=== PATIENT | male | born 1985 | race Caucasian/White ===

== ENCOUNTER 2024-08-24 19:26 | Emergency (ER) | payer OTHER, SELFPAY ==
[2024-08-24] VITALS (16 sets, daily range): BP systolic 107–165; BP diastolic 60–98; PULSE 50–96; RESP 16–20; TEMP 36.3; O2SAT 93–100; BMI 34.7
[2024-08-24 19:51] LABS: Basophils # 0.1 10^3/uL (0.0-0.1); Basophils % 0.4 %; Eosinophils # 0.2 10^3/uL (0.0-0.8); Eosinophils % 1.4 %; Hematocrit 45.2 % (37-53); Lymphocytes # 2.6 10^3/uL (0.8-4.8); Lymphocytes % 23.4 %; Mean Corpuscular HGB Conc 34.1 g/dL (30-55); Mean Corpuscular Hemoglobin 29.2 pg (27-33); Mean Corpuscular Volume 85.8 fl (82-101); Mean Platelet Volume 9.4 fL (7.4-10.4); Monocytes # 0.7 10^3/uL (0.2-0.9); Monocytes % 6.4 %; Neutrophils # 7.61 10^3/uL (1.8-7.7); Nucleated Red Blood Cells % 0 %; Platelet Count 310 10^3/cmm (157-399); Red Blood Count 5.27 10^6/uL (3.85-5.65); Red Cell Distribution Width 12.5 % (12.1-15.1); White Blood Count 11.21 10^3/uL (3.29-11.43)
[2024-08-24 20:07] LABS: Alanine Aminotransferase 39 U/L (0-41); Albumin Level 4.5 g/dL (3.5-5.2); Alkaline Phosphatase 83 U/L (40-130); Anion Gap 19.9 (5-19); Aspartate Amino Transferase 28 U/L (0-40); Blood Urea Nitrogen 15 mg/dL (6-20); Calcium 9.4 mg/dL (8.5-10.5); Carbon Dioxide 22 mmol/L (22-29); Chloride 101 mmol/L (98-107); Creatinine Clr Calc Pharmacy 114.9202; Globulin 2.6 g/dL (1.3-4.6); Glomerular Filtration Rate 67.4 mL/min (90-130); Glucose 137 mg/dL (65-115); Lipase 17 U/L (13-60); Osmolality Calculated 291 mOsm/kg (285-295); Potassium 3.9 mmol/L (3.5-5.1); Sodium 139 mmol/L (136-145); Total Bilirubin 0.3 mg/dL (0.15-1.2); Total Protein 7.1 g/dL (6.6-8.7)
--- NOTE | 2024-08-24 20:09 | CTR_ITS ---
PROCEDURE INFORMATION: Exam: CT Abdomen And Pelvis Without Contrast Exam date and time: 08/24/2024 8:14 PM Age: 39 years old Clinical indication: Abdominal pain; Patient HX: C/O left flank pain; Additional info: L flank pain TECHNIQUE: Imaging protocol: Computed tomography of the abdomen and pelvis without contrast. Radiation optimization: All CT scans at this facility use at least one of these dose optimization techniques: automated exposure control; mA and/or kV adjustment per patient size (includes targeted exams where dose is matched to clinical indication); or iterative reconstruction. COMPARISON: No relevant prior studies available. RADIATION DOSE METRICS: Total DLP (mGy-cm): 1146.78 FINDINGS: Liver: Normal. No mass. Gallbladder and biliary ducts: Normal. No calcified stones. No ductal dilation. Pancreas: Normal. No ductal dilation. Spleen: Normal. No splenomegaly. Adrenal glands: Normal. No mass. Kidneys and ureters: There is left obstructive uropathy secondary to a 4 mm stone involving the left proximal ureter at the level of L3-L4. There is punctate nonobstructing right nephrolithiasis. Stomach and bowel: Scattered colon diverticula. No inflammatory change identified involving the GI tract. No signs of bowel obstruction. Appendix: No evidence of appendicitis. Intraperitoneal space: Unremarkable. No free air. No significant fluid collection. Vasculature: Unremarkable. No abdominal aortic aneurysm. Lymph nodes: Unremarkable. No enlarged lymph nodes. Urinary bladder: Unremarkable as visualized. Reproductive: Unremarkable as visualized. Bones/joints: Unremarkable. No acute fracture. Soft tissues: Unremarkable. CT/CT kidney stone [id number] IMPRESSION: 1. Left obstructive uropathy secondary to a 4 mm stone involving the left proximal ureter. 2. Punctate nonobstructing right nephrolithiasis.
--- NOTE | 2024-08-24 20:18 | ED_ITS ---
HPI - Abdominal Pain 2 General: Chief Complaint: Abdominal Pain Stated Complaint: low left abd pain n/v Time Seen by Provider: 08/24/24 19:48 Source: patient Mode of arrival: ambulatory Limitations: no limitations History of Present Illness: 39-year-old male who states 90 minutes a go he started having left-sided abdominal and flank pain he states his pain started suddenly it has been severe in nature he states pain is currently 9 out of 10 it is causing vomiting. He denies any fevers denies any radiation of the pain denies any history of kidney stones. Associated Symptoms: Reports nausea and vomiting; Denies chills, diarrhea, dysuria and fever(s) Related Data Previous Rx's Medication Instructions Recorded azithromycin 250 mg tablet See Rx Instructions PO .COMPLEX #6 06/07/24 (Zithromax Z-Demetrio) tabs hydrocodone 5 mg-acetaminophen 325 1 tab PO Q6H PRN pain #14 tabs 08/24/24 mg tablet ondansetron 4 mg disintegrating 4 mg PO Q6H PRN nausea and 08/24/24 tablet vomiting #14 tabs Allergies Allergy/AdvReac Type Severity Reaction Status Date / Time No Known Allergies Allergy Verified 06/07/24 17:20 Review of Systems 2 Const: Denies: fever(s), chills, body aches or change in appetite ENMT: Denies: throat pain or dental pain Card: Denies: chest pain Resp: Denies: dyspnea GI: Reports: abdominal pain, nausea and vomiting; Denies: diarrhea : Denies: dysuria Musc: Denies: neck pain or back pain Skin/Breast: Denies: rash Neuro: Denies: headache(s) Physical Exam 2 Const: COMMON NORMALS: no acute distress, patient oriented x3 and healthy appearing HENMT: COMMON NORMALS: normocephalic and atraumatic HEAD & SCALP: n ormocephalic and atraumatic Eye: COMMON NORMALS: conjunctivae normal CONJUNCTIVA: Yes conjunctivae normal Neck/C-Spine: COMMON NORMALS: full ROM and supple Chest: COMMONS NORMALS: normal inspection of the chest Resp: COMMON NORMALS: normal respiratory effort Cardio: COMMON NORMALS: regular rate RATE: regular rate GI: COMMON NORMALS: Normal to inspection, nondistended, normoactive bowel sounds present, Soft to palpation, non-tender and no masses PALPATION: Yes Soft to palpation Extremity: COMMON NORMALS: normal to inspection and full ROM Neuro: COMMON NORMALS: patient oriented x3, moves all extremities and no focal motor deficits Psych: COMMON NORMALS: mental status grossly normal, Normal thought process present and cooperative THOUGHT PROCESS: Normal thought process present Skin: COMMON NORMALS: no rashes or lesions noted and no wounds GENERAL SKIN EXAM: no rashes or lesions noted Course 2 Vital Signs: Vital signs: Vital Signs Temperature 97.4 F L 08/24/24 20:03 Pulse Rate 86 08/24/24 22:45 Respiratory Rate 16 08/24/24 22:35 Blood Pressure 112/60 08/24/24 22:35 Pulse Oximetry 96 08/24/24 22:35 Oxygen Delivery Me thod Room Air 08/24/24 20:03 MDM - Abdominal Pain Medical Decision Making Patient presents here with flank pain he is found to have a kidney stone no signs of infection his pains improved here we will prescribe him pain meds he is follow-up with urology he is return if worsening he understands agrees to plan. Medical Records I reviewed the patient's medical records. Lab Data I reviewed the patient's lab results. 08/24/24 19:45 08/24/24 19:45 Labs/Radiology: Radiology Impressions Abdomen/Pelvis CT 08/24/24 20:09 IMPRESSION: 1. Left obstructive uropathy secondary to a 4 mm stone involving the left proximal ureter. 2. Punctate nonobstructing right nephrolithiasis. Laboratory Results WBC 11.21 10^3/uL (3.29-11.43) 08/24/24 19:45 RBC 5.27 10^6/uL (3.85-5.65) 08/24/24 19:45 Hgb 15.40 g/dL (11.27-16.99) 08/24/24 19:45 Hct 45.2 % (37-53) 08/24/24 19:45 MCV 85.8 fl (82-101) 08/24/24 19:45 MCH 29.2 pg (27-33) 08/24/24 19:45 MCHC 34.1 g/dL (30-55) 08/24/24 19:45 RDW 12.5 % (12.1-15.1) 08/24/24 19:45 Plt Count 310 10^3/cmm (157-399) 08/24/24 19:45 MPV 9.4 fL (7.4-10.4) 08/24/24 19:45 Neut % (Auto) 68.0 % 08/24/24 19:45 Lymph % (Auto) 23.4 % 08/24/24 19:45 [place] % (Auto) 6.4 % 08/24/24 19:45 Eos % (Auto) 1.4 % 08/24/24 19:45 Baso % (Auto) 0.4 % 08/24/24 19:45 Neut # (Auto) 7.61 10^3/uL (1.8-7.7) 08/24/24 19:45 Lymph # (Auto) 2.6 10^3/uL (0.8-4.8) 08/24/24 19:45 [place] # (Auto) 0.7 10^3/uL (0.2-0.9) 08/24/24 19:45 Eos # (Auto) 0.2 10^3/uL (0.0-0.8) 08/24/24 19:45 Baso # (Auto) 0.1 10^3/uL (0.0-0.1) 08/24/24 19:45 Nucleated RBC % (auto) 0 % 08/24/24 19:45 Nucleated RBCs # 0.0 /100WBC 08/24/24 19:45 Sodium 139 mmol/L (136-145) 08/24/24 19:45 Potassium 3.9 mmol/L (3.5-5.1) 08/24/24 19:45 Chloride 101 mmol/L (98-107) 08/24/24 19:45 Carbon Dioxide 22 mmol/L (22-29) 08/24/24 19:45 Anion Gap 19.9 (5-19) H 08/24/24 19:45 BUN 15 mg/dL (6-20) 08/24/24 19:45 Creatinine 1.2 mg/dL (0.7-1.2) 08/24/24 19:45 GFR Calculation 67.4 mL/min (90-130) L 08/24/24 19:45 Glucose 137 mg/dL (65-115) H 08/24/24 19:45 Calculated Osmolality 291 mOsm/kg (285-295) 08/24/24 19:45 Calcium 9.4 mg/dL (8.5-10.5) 08/24/24 19:45 Total Bilirubin 0.3 mg/dL (0.15-1.2) 08/24/24 19:45 AST 28 U/L (0-40) 08/24/24 19:45 ALT 39 U/L (0-41) 08/24/24 19:45 Alkaline Phosphatase 83 U/L (40-130) 08/24/24 19:45 Total Protein 7.1 g/dL (6.6-8.7) 08/24/24 19:45 Albumin 4.5 g/dL (3.5-5.2) 08/24/24 19:45 Globulin 2.6 g/dL (1.3-4.6) 08/24/24 19:45 Lipase 17 U/L (13-60) 08/24/24 19:45 Urine Color Yellow (Yellow) 08/24/24 21:47 Urine Appearance Cloudy (CLEAR) A 08/24/24 21:47 Urine pH 6.5 (5-7) 08/24/24 21:47 Ur Specific [place] 1.027 (1.005-1.030) 08/24/24 21:47 Urine Protein 1+ (Negative) A 08/24/24 21:47 Urine Glucose (UA) Negative (Normal) 08/24/24 21:47 Urine Ketones 1+ (Negative) H 08/24/24 21:47 Urine Blood 3+ (Negative) A 08/24/24 21:47 Urine Nitrate Negative (Negative) 08/24/24 21:47 Urine Bilirubin Negative (Negative) 08/24/24 21:47 Urine Urobilinogen 1.0 mg/dL (Negative) 08/24/24 21:47 Ur Leukocyte Esterase Negative (Negative) 08/24/24 21:47 Urine RBC Too numerous to cnt /hpf (0-2) H 08/24/24 21:47 Urine WBC 11-20 /hpf (0-5) H 08/24/24 21:47 Ur Squamous Epith Cells 0-5 /hpf (0-5) 08/24/24 21:47 Amorphous Sediment Not Reportable 08/24/24 21:47 Urine Bacteria None seen /hpf (NONE) 08/24/24 21:47 Hyaline Casts 5.36 /lpf 08/24/24 21:47 Urine Mucus Trace /hpf 08/24/24 21:47 All radiology interpretation(s) finalized by discharge Discharge Plan Discharge Patient Disposition: Home Clinical Impression: Kidney stone Condition: Stable Prescriptions: New hydrocodone-acetaminophen 5-325 mg tablet 1 tab PO Q6H PRN (Reason: pain) Qty: 14 0RF ondansetron 4 mg tablet,disintegrating 4 mg PO Q6H PRN (Reason: nausea and vomiting) Qty: 14 0RF No Action azithromycin [Zithromax Z-Demetrio] 250 mg tablet See Rx Instructions PO .COMPLEX Qty: 6 0RF Rx Instructions: take 500 mg today (day 1), then 250 mg for 4 days (days 2-5) PO Discharge Orders: Discharge ED (Routine); Ordered 08/24/24 Ordered By: Linwood Munoz Referrals: Glen Renteria MD [Primary Care Provider] - Discharge Diet: Advance as tolerated Discharge Activity: Resume usual activity Patient Instructions: Kidney Stones (ED), Opioid Safety Coding Level of Care Code ED Tear Down Man for Hema Reza
[2024-08-24] MEDS: ondansetron 2 mg/ML SDV 2 mL 4 MG IVP (20:43)
[2024-08-24] MEDS: HYDROmorphone 1 mg/mL INJ 1 mL IVP (20:44)
[2024-08-24] MEDS: ketorolac 30 mg/mL INJ IVP (20:46)
[2024-08-24 22:08] LABS: Bilirubin Urine Negative (Negative); Blood Urine 3+ (Negative); Glucose Urine UA Negative (Normal); Ketones Urine 1+ (Negative); Leukocyte Esterase Urine Negative (Negative); Nitrate Urine Negative (Negative); Protein Urine 1+ (Negative); Specific Gravity, Urine 1.027 (1.005-1.030); Urine Appearance Cloudy (CLEAR); Urine Color Yellow (Yellow); pH Urine 6.5 (5-7)
[2024-08-24 22:13] LABS: Add Urine Microscopic? YES; Bacteria Urine None Seen /hpf; Hyaline Casts Urine 5.36 /lpf; Squamous Epithelial Cell Urine 0-5 /hpf (0-5); Universal Test for UA Present (0)
[2024-08-24 22:29] LABS: Add Urine Culture? Yes; Mucus Urine TRACE /hpf; RBC Urine TOO NUMEROUS TO CNT /hpf (0-2)
[2024-08-24] MEDS: HYDROcodone-acetaminophen 5-325 mg Tablet 2 TAB PO (22:47)
--- NOTE | 2024-08-26 15:15 | PC.SOCIAL ---
Urology Referral Patient's referral faxed to Dr. Martínez with [facility] at this time. Spoke with Cristy, patient's about choice and encouraged to call the clinic if she hadn't heard from them within a couple of days.
--- NOTE | 2024-08-27 08:18 | DCPLANNER ---
Urology referral sent to [facility]
== END 2024-08-24 22:53 | disposition home or self-care (01) ==
PROVIDERS: Emergency Medicine; Emergency Provider Emergency Medicine; PCP Family Medicine
DX: N20.0 Calculus of kidney (principal)
CPT/HCPCS: 36415; 74176; 80053; 81001; 83690; 85025; 87086; 96374; 96375; 99285; J1171; J1885; J2405